=== PATIENT | female | born 1975 | race Caucasian/White ===

== ENCOUNTER 2017-03-28 15:41 | Emergency (ER) | payer OTHER ==
[~2017-03-28] VITALS: Ht 152.4 cm; Wt 63.2 kg
[2017-03-28 16:22] LABS: HEMATOCRIT 40.6 % (36.0-46.0); HEMOGLOBIN 13.6 G/DL (11.9-15.5); MCH 31.1 PG (29.0-34.0); MCHC 33.5 G/DL (30.0-36.0); MCV 92.9 FL (83-99); PLATELET COUNT 270 K/uL (156-360); RBC DIS.WIDTH-CV 12.3 % (11.8-14.6); RBC DIS.WIDTH-SD 42.5 % (39-53); RED BLOOD COUNT 4.37 M/uL (3.80-5.20); WHITE BLOOD COUNT 6.8 K/uL (4.1-10.2)
[2017-03-28 16:31] LABS: CHLORIDE 103 mEq/L (99-109); POTASSIUM 3.8 mEq/L (3.7-5.4); SODIUM 137 mEq/L (136-147)
[2017-03-28 16:32] LABS: GLUCOSE 98 mg/dL (70-99)
[2017-03-28 16:36] LABS: CREATININE 0.8 mg/dL (0.6-1.3)
[2017-03-28 16:37] LABS: UREA NITROGEN (BUN) 8 mg/dL (9-23)
[2017-03-28 16:42] LABS: TROP-I INTERPRETATION NEGATIVE; TROPONIN-I < 0.01 ng/mL (0.0-0.30)
[2017-03-28 16:44] LABS: GFR ESTIMATE (CALCULATED) > 59 mL/min/
[2017-03-28 19:28] VITALS: BP 108/68
== END 2017-03-28 19:30 | disposition home or self-care (01) ==
LOC: EME 15:41
PROVIDERS: Emergency Medicine
DX: J10.1 Influenza due to other identified influenza virus with other respiratory manifestations (principal); R07.89 Other chest pain
CPT/HCPCS: 71020; 80048; 84484; 85027; 87502; 93005; 99281; 99285